=== PATIENT | female | born 1990 | race Two or more races ===

== ENCOUNTER 2018-08-25 18:45 | Emergency (ER) | payer OTHER ==
[~2018-08-25] VITALS: Ht 160 cm; Wt 86.2 kg
[2018-08-25 19:24] VITALS: BP 123/81
--- NOTE | 2018-08-25 20:04 | PHYS DOC ---
Past Medical History Past Medical History: No Pertinent History (CONSTANCE GASTON APRN) Past Surgical History: Tonsillectomy (CONSTANCE GASTON APRN) Alcohol Use: None Drug Use: None (CONSTANCE GASTON APRN) Adult General Chief Complaint Chief Complaint: OTHER COMPLAINTS HPI HPI Patient is a 28 year old female who presents to the emergency room accompanied by her significant other with complaints of continued bleeding from the left arm Nexplanon removal site. Patient states she was at Dr. Gooden's office this morning and had her Nexplanon removed at approximately 11:00. Patient states that the area has continued to bleed after having the device removed. She denies any numbness, tingling, weakness, tenderness, or injury to the site. She denies any pain at this time. (CONSTANCE GASTON APRN) Review of Systems Review of Systems Constitutional: Denies fever or chills [] Integument:See HPI Neurologic: Denies headache, focal weakness or sensory changes [] (CONSTANCE GASTON APRN) Allergies Allergies Allergies Coded Allergies Type Severity Reaction Last Updated Verified No Known Drug Allergies 11/26/13 No (LEANN PETERSON MD) Physical Exam Physical Exam Constitutional: Well developed, well nourished, no acute distress, non-toxic appearance. [] HENT: Normocephalic, atraumatic, bilateral external ears normal, nose normal. [] Eyes: Conjunctiva normal, no discharge. [] Skin: Warm, dry, no erythema, no rash; 0.5 cm superficial laceration noted to left upper medial arm no active bleeding after pressure dressing was removed. [ ] Extremities: No tenderness, no cyanosis, no clubbing, ROM intact, no edema. [] Neurologic: Alert and oriented X 3, normal motor function, normal sensory function, no focal deficits noted. [] Psychologic: Affect normal, judgement normal, mood normal. [] (CONSTANCE GASTON APRN) Current Patient Data Vital Signs Vital Signs Date Time Temp Pulse Resp B/P (MAP) Pulse Ox O2 Delivery O2 Flow Rate FiO2 08/25/18 19:24 98.5 69 16 123/81 (95) 99 Room Air 98.5 (LEANN PETERSON MD) EKG EKG [] (CONSTANCE GASTON APRN) Radiology/Procedures Radiology/Procedures Site was cleansed by nurse and a steri strip was applied, a 4x4 and coban was applied to the site and patient was instructed to remove the coban at 2200 [] (CONSTANCE GASTON APRN) Course & Med Decision Making Course & Med Decision Making Pertinent Labs and Imaging studies reviewed. (See chart for details) dx: [] (CONSTANCE GASTON APRN) Course & Med Decision Making Staff Physician Addendum: I was working in the ER during the course of this patient's visit. I was available for consultation as needed, but I was not directly involved in the care of this patient. (LEANN PETERSON MD) Dragon Disclaimer Dragon Disclaimer This electronic medical record was generated, in whole or in part, using a voice recognition dictation system. (CONSTANCE GASTON APRN) Departure Departure Impression: Primary Impression: Superficial laceration Disposition: 01 HOME, SELF-CARE Condition: STABLE Referrals: NO PCP (PCP) Patient Instructions: Laceration Care, Adult, [id number] Additional Instructions: Keep the area clean and dry. Steri strip will fall off on it's own. Tylenol or ibuprofen as needed for pain. Follow up with your primary care doctor as needed. Return to the ER for worsening symptoms including: fever, redness, warmth, or drainage from site. CONSTANCE GASTON APRN Aug 25, 2018 20:03 LEANN PETERSON MD Aug 25, 2018 23:53
== END 2018-08-25 20:35 | disposition home or self-care (01) ==
LOC: ER 18:45
DX: T83.83XA Hemorrhage due to genitourinary prosthetic devices, implants and grafts, initial encounter (principal); S41.112A Laceration without foreign body of left upper arm, initial encounter; Y82.8 Other medical devices associated with adverse incidents; Y92.89 Other specified places as the place of occurrence of the external cause
CPT/HCPCS: 99282